=== PATIENT | female | born 1955 | race Caucasian/White ===

== ENCOUNTER 2018-02-03 11:40 | Emergency (ER) | payer MEDICARE ==
[~2018-02-03] VITALS: Ht 162.6 cm; Wt 86.2 kg
[2018-02-03] MEDS ORDERED: OXYC-128 PO (12:00)
[2018-02-03] MEDS ORDERED: OXYCODONE/APAP 5-325 MG TABLET PO ONE (12:00)
[2018-02-03] MEDS ORDERED: CYCL5TAB PO (12:00)
[2018-02-03] MEDS ORDERED: DULO60CA45 PO (12:00)
[2018-02-03] MEDS ORDERED: OXYCODONE/APAP 5-325 MG TABLET ONE (12:01)
--- NOTE | 2018-02-03 14:04 | NUR ---
PT WAS EVALUATED BY DR DAVID. PT WAS D/C TO HOME. D/C INSTRUCTIONS GIVEN TO THE PT BY DR DAVID.
[2018-02-03 14:05] VITALS: BP 138/79
== END 2018-02-03 14:11 | disposition home or self-care (01) ==
LOC: ER 11:40
DX: S13.4XXA Sprain of ligaments of cervical spine, initial encounter (principal); S39.012A Strain of muscle, fascia and tendon of lower back, initial encounter; T07.XXXA Unspecified multiple injuries, initial encounter; Z88.8 Allergy status to other drugs, medicaments and biological substances; Z79.891 Long term (current) use of opiate analgesic; Z79.899 Other long term (current) drug therapy; V43.52XA Car driver injured in collision with other type car in traffic accident, initial encounter; Y92.410 Unspecified street and highway as the place of occurrence of the external cause; Y93.89 Activity, other specified; Y99.8 Other external cause status
CPT/HCPCS: 72125; 72131; 73562; 73590; A4663